=== PATIENT | male | born 1935 | race Caucasian/White ===

== ENCOUNTER 2017-12-17 01:24 | Emergency (ER) | payer OTHER ==
[~2017-12-17] VITALS: Ht 165.1 cm; Wt 70.8 kg
[~2017-12-17 01:24] MED LIST: ATACAND4 MG
[2017-12-17] MEDS ORDERED: TRAMADOL HCL50 MG (01:44)
[2017-12-17] MEDS ORDERED: NEURONTIN600 MG (01:45)
[2017-12-17] MEDS ORDERED: CEFUROXIME250 MG PO (02:41)
== END 2017-12-17 02:54 | disposition home or self-care (01) ==
LOC: ER 01:24
DX: S01.01XA Laceration without foreign body of scalp, initial encounter (principal); W45.8XXA Other foreign body or object entering through skin, initial encounter; Y93.89 Activity, other specified; Y92.012 Bathroom of single-family (private) house as the place of occurrence of the external cause; Y99.8 Other external cause status

== ENCOUNTER 2020-07-27 16:23 | Emergency (ER) | payer OTHER ==
[~2020-07-27] VITALS: Ht 165.1 cm; Wt 68.0 kg
[~2020-07-27 16:23] MED LIST changes: +CEFUROXIME250 MG PO; +NEURONTIN600 MG; +TRAMADOL HCL50 MG
== END 2020-07-27 18:41 | disposition home or self-care (01) ==
LOC: ER 16:23
DX: S01.02XA Laceration with foreign body of scalp, initial encounter (principal); W01.118A Fall on same level from slipping, tripping and stumbling with subsequent striking against other sharp object, initial encounter; Y93.H9 Activity, other involving exterior property and land maintenance, building and construction; Y92.017 Garden or yard in single-family (private) house as the place of occurrence of the external cause; Y99.8 Other external cause status

== ENCOUNTER 2020-08-06 07:45 | Emergency (ER) | payer OTHER ==
[~2020-08-06] VITALS: Ht 165.1 cm; Wt 68.0 kg
== END 2020-08-06 08:54 | disposition home or self-care (01) ==
LOC: ER 07:45
DX: Z48.02 Encounter for removal of sutures (principal)

== ENCOUNTER 2023-10-25 14:46 | Inpatient (IN) | payer OTHER ==
[~2023-10-25] VITALS: Ht 177.8 cm; Wt 72.6 kg
[2023-10-25] MEDS ORDERED: NEURONTIN800 MG PO (16:17)
[2023-10-25] MEDS ORDERED: CANDESARTAN CILE8 M1 PO (16:17)
--- NOTE | 2023-10-25 16:25 | NUR ---
PACIENTE ALERTA Y ORIENTADO X3, REFIERE HABERSE LACERADO LA PIERNA HACE DOS SEMANAS. AREA SE OBSERVA CON EDEMA, ENROJECIMIENTO Y TEJIDO NECROTICO. SE CRIS S/V Y SE UBICA.
[2023-10-25] MEDS ORDERED: PIPERACILLIN/TAZOBACTAM SODIUM 3.375 GM VIAL IV STA (17:11)
[2023-10-25 17:30] LABS: HEMATOCRIT 37.9 % (39.0-48.0); HEMOGLOBIN 12.6 g/dL (13-16.00); MEAN CELL VOLUME 92.7 fL (80.0-100.00); MEAN CORPUSCULAR HEMOGLOBIN 30.8 pg (27.00-32.0); MEAN CORPUSCULAR HGB CONC 33.2 g/dl (32.0-36.0); PLATELET COUNT 244 K/uL (150-450); RED BLOOD COUNT 4.08 M/uL (4.00-6.00); RED CELL DISTRIBUTION WIDTH 13.7 % (11.5-14.5)
--- NOTE | 2023-10-25 17:42 | NUR ---
PACIENTE EVALUADO POR QUIEN ORDENA [place] MEDICO, SE EDUCA ACERCA DEL MISMO Y REFIERE ENTENDER. SE CANALIZA Y COLECTAN MUESTRAS DE LABORTAORIO MEDIANTE MEDIDAS ASEPTICAS
[2023-10-25 17:59] LABS: CALCIUM 9.7 mg/dL (8.5-10.1); CREATININE SERUM 1.76 mg/dL (0.70-1.30); GFR 36.73; POTASSIUM 5.34 mEq/L (3.5-5.1)
[2023-10-25 20:07] LABS: URINE APPEARANCE Clear; URINE BILIRRUBIN Negative (NEGATIVE); URINE BLOOD Negative; URINE COLOR Yellow; URINE GLUCOSE Negative (NEGATIVE); URINE LEUKOCYTE Negative; URINE NITRATE Negative; URINE PROTEIN Trace (NEGATIVE)
[2023-10-25 20:12] LABS: URINE BACTERIA 8.7 uL (0.0-1933); URINE RBC 5.3 uL (0.0-20.8); URINE WBC 2.3 uL (0.0-23.2)
[2023-10-25 20:15] LABS: URINE EPITHELIAL CELLS 0.3 uL (0.0-38.8)
[2023-10-25] MEDS ORDERED: GABAPENTIN 800 MG TABLET PO SCH (20:27)
[2023-10-25] MEDS ORDERED: 0.9 % SODIUM CHLORIDE 1,000 ML IV SCH (20:30)
[2023-10-25] MEDS ORDERED: ACETAMINOPHEN 500 MG GEL..CAP PO PRN (20:30)
[2023-10-25] MEDS ORDERED: ONDANSETRON HCL 4 MG in 0.9 % SODIUM CHLORIDE 50 ML IV PRN (20:30)
[2023-10-25 21:58] LABS: PARTIAL THROMBOPLASTIN TIME 32.2 SECONDS (22.0-34.0); PROTHROMBIN TIME 10.5 SECONDS (9.0-11.5)
[2023-10-26] MEDS ORDERED: PIPERACILLIN/TAZOBACTAM SODIUM 2.25 GM in DEXTROSE 5 % IN WATER 50 ML IV SCH
[2023-10-26] MEDS ORDERED: SODIUM POLYSTYRENE SULFONATE 15 G/4 TSP TSP PO SCH (09:00)
[2023-10-26] MEDS ORDERED: ENOXAPARIN SODIUM 30 MG/0.3 ML SYRINGE SUBCUTANEO SCH (09:00)
[2023-10-26] MEDS ORDERED: FAMOTIDINE/PF 20 MG in 0.9 % SODIUM CHLORIDE 8 ML IV PUSH SCH (09:00)
[2023-10-26] MEDS ORDERED: LINEZOLID 600 MG TABLET PO SCH (13:17)
[2023-10-26] MEDS ORDERED: TETANUS & DIPHTHERIA TOX,ADULT 0.5 ML VIAL IM ONE (13:30)
[2023-10-27 08:45] LABS: HEMATOCRIT 34.7 % (39.0-48.0); HEMOGLOBIN 11.7 g/dL (13-16.00); MEAN CELL VOLUME 93.1 fL (80.0-100.00); MEAN CORPUSCULAR HEMOGLOBIN 31.3 pg (27.00-32.0); MEAN CORPUSCULAR HGB CONC 33.7 g/dl (32.0-36.0); PLATELET COUNT 230 K/uL (150-450); RED BLOOD COUNT 3.73 M/uL (4.00-6.00); RED CELL DISTRIBUTION WIDTH 13.5 % (11.5-14.5)
[2023-10-27 09:28] LABS: ALBUMIN 3.3 gm/dL (3.4-5.0); ALKALINE PHOSPHATASE 50 U/L (50-136); ALT/SGPT 17 U/L (12-78); ANION GAP 7 (10.0-20.0); AST/SGOT 17 U/L (15-37); BLOOD UREA NITROGEN 24 mg/dL (7-18); BUN CREA RATIO 15 (7.0-25.0); CALCIUM 8.6 mg/dL (8.5-10.1); CARBON DIOXIDE 29 mEq/L (21-32); CHLORIDE 111 mmol/L (98-107); CREATININE SERUM 1.57 mg/dL (0.70-1.30); GLOBULINA 2.8 G/DL (2.4-3.5); GLUCOSE FASTING 91 mg/dL (65-100); OSMOLALITY SERUM 287 MOSM/KG (275-295); PHOSPHOROUS 2.7 mg/dL (2.5-4.9); POTASSIUM 4.78 mEq/L (3.5-5.1); SODIUM 142 mmol/L (136-145); TOTAL PROTEIN 6.1 gm/dL (6.4-8.2)
[2023-10-27 09:29] LABS: C-REACTIVE PROTEIN < 0.29 MG/DL (0.00-0.29)
[2023-10-28] MEDS ORDERED: FAMOtidine 20 MG TABLET PO SCH (09:00)
[2023-10-28 18:01] LABS: HEMATOCRIT 33.3 % (39.0-48.0); HEMOGLOBIN 11.3 g/dL (13-16.00); MEAN CELL VOLUME 92.8 fL (80.0-100.00); MEAN CORPUSCULAR HEMOGLOBIN 31.5 pg (27.00-32.0); PLATELET COUNT 239 K/uL (150-450); RED BLOOD COUNT 3.58 M/uL (4.00-6.00)
[2023-10-28 18:57] LABS: ALBUMIN 3.2 gm/dL (3.4-5.0); BILIRUBIN TOTAL 0.29 mg/dL (0.3-1.2); CALCIUM 8.2 mg/dL (8.5-10.1); CREATININE SERUM 1.5 mg/dL (0.70-1.30); GFR 44.07; GLOBULINA 2.9 G/DL (2.4-3.5); POTASSIUM 3.63 mEq/L (3.5-5.1); TOTAL PROTEIN 6.1 gm/dL (6.4-8.2)
== END 2023-10-31 15:33 | disposition home or self-care (01) | DRG 603 ==
LOC: ER 14:47 → MEDJ 20:45
PROVIDERS: General Practice; Internal Medicine Infectious Disease; ADMIT Internal Medicine; ATTEND Internal Medicine
PROC: 0JBP0ZX Excision of Left Lower Leg Subcutaneous Tissue and Fascia, Open Approach, Diagnostic (ICD-10-PCS; principal; 2023-10-26)
PROC: BL31ZZZ Magnetic Resonance Imaging (MRI) of Lower Extremity Connective Tissue (ICD-10-PCS; 2023-10-26)
PROC: BT43ZZZ Ultrasonography of Bilateral Kidneys (ICD-10-PCS; 2023-10-26)
DX: L03.116 Cellulitis of left lower limb (principal); N17.9 Acute kidney failure, unspecified; S80.12XS Contusion of left lower leg, sequela; L02.416 Cutaneous abscess of left lower limb; I73.9 Peripheral vascular disease, unspecified; E87.8 Other disorders of electrolyte and fluid balance, not elsewhere classified; I12.9 Hypertensive chronic kidney disease with stage 1 through stage 4 chronic kidney disease, or unspecified chronic kidney disease; N18.9 Chronic kidney disease, unspecified; W26.8XXS Contact with other sharp object(s), not elsewhere classified, sequela